=== PATIENT | female | born 1965 | race Caucasian/White ===

== ENCOUNTER 2024-06-27 14:56 | Emergency (ER) | payer BC, SELFPAY ==
[2024-06-27 14:59] VITALS: BP 148/90; PULSE 100; RESP 18; TEMP 37; O2SAT 97; BMI 43.0
[2024-06-27 15:21] LABS: Appearance Urine Clear (Clear); Bilirubin Urine Negative (Negative); Blood Urine Negative (Negative); Color Urine Yellow (Yellow); Glucose Urine Negative (Negative); Ketones Urine Negative (Negative); Leukocyte Esterase Urine Negative (Negative); Nitrite Urine Negative (Negative); Protein Urine Negative (Negative); Specific Gravity Urine 1.015 (1.000-1.030); Urobilinogen Urine 0.2 (0.2-1.0); pH Urine 7.5 (5.0-8.5)
--- NOTE | 2024-06-27 15:23 | ED_ITS ---
HPI - General Adult General Date Seen: 06/27/24 Chief complaint: Abdominal Pain Stated complaint: Diverticulitis Time Seen by Provider: 06/27/24 15:20 History of Present Illness HPI narrative: Pleasant 59-year-old female with a past medical history of asthma, hypertension, and history of diverticulitis (diagnosed after an ER visit at [facility] about 2 years ago. Treated with a 10 day course of antibiotic). She presents to the ER today for evaluation abdominal pain. She actually had an upper respiratory infection and ear infection last week and was put on a 5 day course of amoxicillin and a 5 day course of prednisone from Wednesday through Wednesday. Her respiratory symptoms are dramatically improved and she is feeling much better on that front. Beginning about 2 days ago, on Wednesday she started developed some intermittent waves of abdominal pain affecting both of her lower quadrants. Pain has been present off and on since then and getting gradually worse. No clear exacerbating or alleviating factors. No fever chills. She has had some mild nausea with pain today but no vomiting. She has been feeling bloated but has been passing normal bowel movements. No diarrhea. No black or bloody stools. She has been urinating frequently but not having any dysuria, or urgency. Today the pain is now localizing more more to her left side and the left upper quadrant. She has had previous hysterectomy. Related Data Home Medications ?Medication ?Instructions ?Recorded ?Confirmed albuterol sulfate 90 mcg/actuation g inhalation 02/27/22 06/20/24 aerosol inhaler losartan 25 mg tablet 25 mg PO 02/27/22 06/20/24 omeprazole 20 mg capsule,delayed 20 mg PO 02/27/22 06/20/24 release COVID-19 antigen test (BinaxNOW #1 ea 10/13/22 10/13/22 COVID-19 Ag Self Test kit) fluticasone 250 mcg-salmeterol 50 ea inhalation 10/13/22 06/20/24 mcg/dose blistr powdr for inhalation (Advair Diskus) Previous Rx's ?Medication ?Instructions ?Recorded amoxicillin 875 mg-potassium 1 tab PO Q12H #14 tabs 06/27/24 clavulanate 125 mg tablet hydrocodone 5 mg-acetaminophen 325 1 tab PO Q4H PRN pain #10 tabs 06/27/24 mg tablet Allergies Allergy/AdvReac Type Severity Reaction Status Date / Time No Known Drug Allergies Allergy Verified 06/27/24 16:29 [facility] Medical History Asthma ?J45.909 - Unspecified asthma, uncomplicated (ICD-10) Social History Smoking Status: Former smoker How often do you have a drink containing alcohol: 2-3 times a week AUDIT-C Alcohol total score: 3 Non-prescribed substance use: denies use Exam Narrative: Exam Narrative: Constitutional: Appears well-developed and well-nourished. Alert. Conversant. Non toxic. HENT: Head: Atraumatic. Nose: Nose normal. Mouth/Throat: Oral mucosa is clear and moist. no trismus. Eyes: Conjunctivae normal. EOM normal. Pupils equal, round, and reactive to light. No scleral icterus. Neck: Normal range of motion. Neck supple. No tracheal deviation present. Cardiovascular: Normal rate, regular rhythm. No gallop. No friction rub. No murmur heard. Symmetric radial artery pulses Pulmonary/Chest: Effort normal. No stridor. No respiratory distress. No wheezes. No rales. No rhonchi . No tenderness. Abdominal: Soft. Bowel sounds normal. No distension. No mass. Left upper quad> left lower quad> suprapubic and right lower quad tenderness. No rebound. No guarding. No CVA tenderness. Musculoskeletal: RUE: Normal range of motion. No tenderness. No deformity LUE: Normal range of motion. No tenderness. No deformity RLE: Normal range of motion. No edema. No tenderness. No deformity LLE: Normal range of motion. No edema. No tenderness. No deformity Neurological: Alert and oriented to person, place, and time. Normal strength. CN II-VII intact. No sensory deficit. GCS eye subscore is 4. GCS verbal subscore is 5. GCS motor subscore is 6. Normal coordination Skin: Skin is warm and dry. No rash noted. No pallor. Normal capillary refill. Psychiatric: Normal mood. Normal affect. Const: Vital Signs, click to edit/add: Vital Signs - 24 hr 06/27/24 14:59 06/27/24 16:42 Temperature 98.6 F 97.3 F L Pulse Rate [Right Pulse Oximeter] 100 89 Respiratory Rate 18 18 Blood Pressure [Ri ght Upper Arm] 148/90 H 165/79 H Pulse Oximetry 97 97 Oxygen Delivery Me thod Room Air Room Air Course Vital Signs Vital signs: Initial Vital Signs Temperature 98.6 F 06/27/24 14:59 Temperature Source Temporal Artery Scan 06/27/24 14:59 Pulse Rate 100 06/27/24 14:59 Respiratory Rate 18 06/27/24 14:59 Blood Pressure 148/90 H 06/27/24 14:59 Blood Pressure Mean 109 H 06/27/24 14:59 Blood Pressure Position Sitting 06/27/24 14:59 Pulse Oximetry 97 06/27/24 14:59 Oxygen Delivery Method Room Air 06/27/24 14:59 Vital Signs Temperature 98.6 F 06/27/24 14:59 Pulse Rate 100 06/27/24 14:59 Respiratory Rate 18 06/27/24 14:59 Blood Pressure 148/90 H 06/27/24 14:59 Pulse Oximetry 97 06/27/24 14:59 Oxygen Delivery Method Room Air 06/27/24 14:59 Temperature 97.3 F L 06/27/24 16:42 Pulse Rate 89 06/27/24 16:42 Respiratory Rate 18 06/27/24 16:42 Blood Pressure 165/79 H 06/27/24 16:42 Pulse Oximetry 97 06/27/24 16:42 Oxygen Delivery Method Room Air 06/27/24 16:42 Medications Administered Medications: Discontinued Medications Generic Name Dose Route Start Last Admin Trade Name Freq PRN Reason Stop Dose Admin Ketorolac Tromethamine 15 mg 06/27/24 16:52 06/27/24 17:07 Ketorolac 15 Mg/Ml Inj IVP 06/27/24 16:53 15 mg ONCE ONE Administration Medical Decision Making MDM Narrative Medical decision making narrative: Presented to the Emergency Department with left-sided> lower and right side abdominal pain. The differential diagnosis of abdominal pain includes: Appendicitis, Bowel Obstruction, Ulcer, Ischemia, Cholecystitis, Diverticulitis, Pancreatitis, UTI, kidney stone, Enteritis/Colitis, amongst many other etiologies.Laboratory testing does not reveal a cause for the patient's pain. She has a white count of 12 but reports that that is her typical baseline. CT imaging shows evidence for acute uncomplicated diverticulitis. No life threatening cause or need for emergent surgery or hospital admission is detected today. To treat diverticulitis she will start with her low residue diet and clear liquids. She will treat the pain with vugj-wio-dfaecap medications. Prescription for Littleton provided. Opiate precautions reviewed. She is only can use the Littleton for pain uncontrolled by Tylenol or ibuprofen In terms of antibiotic therapy will put her on Augmentin but she wants to hold off for 24-36 hours to see if then I diverticulitis will get better with conservative management. I think that is reasonable based on recent studies. The patient was advised that if symptoms do not completely resolve within another 3-4 dayss re-evaluation with primary care or return to the ED is indicated. The patient also understands that if they worsen, they should return to the ER right away. I discussed the uncertainty about the diagnosis and answered the patient's questions. Abdominal pain return precautions discussed. Need for follow-up repeat CT scan after resolution of symptoms review to the patient. She has an appointment set up with her PCP on 07/10. Lab Data Labs: Lab Results 06/27/24 06/27/24 06/27/24 Range/Units 15:15 15:20 15:53 WBC 12.49 H (4.50-11.00) K/uL RBC 4.06 (4.00-5.20) m/uL Hgb 12.3 (12.0-16.0) gm/dL Hct 37.9 (33.0-51.0) % MCV 93 (80-100) fL MCH 30 (26-34) pg MCHC 33 (32-36) gm/dL RDW Coeff of Yael 13.5 (11.5-15.5) % Plt Count 243 (140-440) K/uL Neut % (Auto) 67.8 (42.0-72.0) % Lymph % (Auto) 23.1 (20-44) % Howard % (Auto) 5.2 (0.0-11.0) % Eos % (Auto) 2.0 (0.0-7.0) % Baso % (Auto) 0.2 (0.0-3.0) % Neut # (Auto) 8.50 H (1.7-7.0) K/uL Lymph # (Auto) 2.90 (0.90-2.90) K/uL Howard # (Auto) 0.60 (0.00-0.90) K/UL Eos # (Auto) 0.20 (0.00-0.50) K/uL Baso # (Auto) 0.00 (0.00-0.30) K/uL Abs Immat Gran (auto) 0.20 (0.00-0.30) K/uL Imm/Tot Granulo (auto) 1.7 % Sodium 134 L (135-149) mmol/L Potassium 4.0 (3.6-5.1) mmol/L Chloride 101 (96-114) mmol/L Carbon Dioxide 26 (20-32) mmol/L Anion Gap 7 (7-15) mEq/L BUN 17 (7-30) mg/dL Creatinine 0.9 (0.5-1.5) mg/dL Estimated Creat Clear 42.44 Estimated GFR 73 ml/min Glucose 119 H (60-115) mg/dL Calcium 9.4 (8.4-10.6) mg/dL Total Bilirubin 0.3 (0.1-1.5) mg/dL AST 21 (12-35) U/L ALT 24 (4-35) U/L Alkaline Phosphatase 91 (40-150) U/L Total Protein 6.6 (6.0-8.3) g/dL Albumin 4.1 (3.3-5.0) g/dL Lipase 133 (23-300) U/L Urine Color Yellow (Yellow) Urine Appearance Clear (Clear) Urine pH 7.5 (5.0-8.5) Ur Specific [place] 1.015 (1.000-1.030) Urine Protein Negative (Negative) Urine Glucose (UA) Negative (Negative) Urine Ketones Negative (Negative) Urine Blood Negative (Negative) Urine Nitrite Negative (Negative) Urine Bilirubin Negative (Negative) Urine Urobilinogen 0.2 (0.2-1.0) Ur Leukocyte Esterase Negative (Negative) Urine RBC 0-2 (0-2) Urine WBC 0-2 (0-5) Ur Squamous Epith Cells None (None-Few) Urine Bacteria None (None) POC Creatinine 1.0 (0.6-1.3) mg/dl Imaging Data CT scan - abdomen: Attestation: I have reviewed the pertinent imaging results. Radiologist's impression: IMPRESSION: Findings compatible with acute uncomplicated sigmoid diverticulitis. No drainable abscess identified. Recommend repeat CT upon completion of treatment or resolution of symptoms, to exclude underlying neoplasm. Alternatively, follow-up with direct visualization with colonoscopy may be considered if not recently performed. Discharge Plan Discharge Clinical Impression: Diverticulitis Patient Disposition: Home, Self-Care Condition: Stable Instructions: Diverticulitis (DC) Additional Instructions: As we discussed, please come back to the ER right away if you have worsening symptoms especially high fever, severe pain, uncontrolled nausea or vomiting, or inability to pass bowel movements. Trigger diverticulitis as you know how. Start the antibiotic if you are not substantially improved within 36 hours. To treat the pain use Tylenol or ibuprofen 1st. For pain uncontrolled by those jcch-iqc-xifzwek medications, use the prescription pain killer, Littleton. Be careful because Littleton causes dizziness, drowsiness, constipation, and can be addictive. Please follow-up with your regular doctor for recheck by July 10 and have your regular doctor arrange a follow-up CT scan to make sure all of the inflammation of your colon is completely resolved (that is, make sure there is no underlying colon cancer) Prescriptions: New amoxicillin-pot clavulanate 875-125 mg tablet 1 tab PO Q12H Qty: 14 0RF hydrocodone-acetaminophen 5-325 mg tablet 1 tab PO Q4H PRN (Reason: pain) Qty: 10 0RF No Action losartan 25 mg tablet 25 mg PO omeprazole 20 mg capsule,delayed release(DR/EC) 20 mg PO albuterol sulfate 90 mcg/actuation HFA aerosol inhaler inhalation (DME) BinaxNOW COVID-19 Ag Self Test Kit See Rx Instructions .ROUTE .MEDSUPPLY Qty: 1 Rx Instructions: As directed fluticasone propion-salmeterol [Advair Diskus] 250-50 mcg/dose blister with device inhalation Patient Comments: INHALE 1 PUFF BY MOUTH TWICE DAILY Follow Up/Referrals: Provider,Not a Local [Non-Staff] - Stand Alone Forms: [facility] [employer] Info Instructions
[2024-06-27 15:30] LABS: RBC Urine 0-2 (0-2); WBC Urine 0-2 (0-5)
--- NOTE | 2024-06-27 15:41 | CRLHL7_ITS ---
For Patients: As a result of the Century Cures Act, medical imaging exams and procedure reports are released immediately into your electronic medical record. You may view this report before your referring provider. If you have questions, please contact your health care provider. INDICATION: Abdominal pain. TECHNIQUE: Multiplanar CT examination of the abdomen and pelvis was performed after the administration of 108 mL Isovue 370 intravenous contrast. COMPARISON: None. FINDINGS: Lower chest: No focal consolidation. Normal heart size. No pleural effusions or pneumothorax. Liver: Unremarkable. Gallbladder: Unremarkable. Biliary: Unremarkable. Pancreas: Within normal limits. Spleen: Unremarkable. Adrenal glands: Unremarkable. Renal/ureters/bladder: Normal in size and symmetrically enhancing. No obstructive uropathy. No hydronephrosis or obstructive urinary calculi. No suspicious renal masses. The ureters appear unremarkable. The bladder is within normal limits. Pelvis: Hysterectomy. No adnexal masses. Gastrointestinal: Mild wall thickening and pericolonic fat stranding involving the sigmoid colon, where there are numerous sigmoid colonic diverticula. No evidence of extraluminal air. No bowel obstruction. Normal appendix. Mild colonic stool burden. Vasculature: No aortic aneurysm. The portal vein remains patent. Mild atherosclerotic calcifications. Lymph nodes: No pathologic lymphadenopathy by size criteria. Peritoneum: No free fluid or pneumoperitoneum. No drainable fluid collections. No peridiverticular abscess. Abdominal wall/soft tissues: Unremarkable. Bones: No acute osseous abnormalities. Mild multilevel degenerative changes of the thoracolumbar spine. IMPRESSION: Findings compatible with acute uncomplicated sigmoid diverticulitis. No drainable abscess identified. Recommend repeat CT upon completion of treatment or resolution of symptoms, to exclude underlying neoplasm. Alternatively, follow-up with direct visualization with colonoscopy may be considered if not recently performed. Please note that all CT scans at this facility use dose modulation, iterative reconstruction, and/or weight-based dosing when appropriate to reduce radiation dose to as low as reasonably achievable. Dictated by Noel Chahal MD @ 06/27/2024 4:47:08 PM (Electronically Signed)
[2024-06-27 16:11] LABS: Basophils Percent Auto 0.2 % (0.0-3.0); Hematocrit 37.9 % (33.0-51.0); Hemoglobin* 12.3 gm/dL (12.0-16.0); Immature Granulocytes Pct Auto 1.7 %; Lymphocytes Percent Auto 23.1 % (20-44); Mean Corpuscular HGB Conc 33 gm/dL (32-36); Mean Corpuscular Hemoglobin 30 pg (26-34); Mean Corpuscular Volume 93 fL (80-100); Monocytes Percent Auto 5.2 % (0.0-11.0); Neutrophils Percent Auto 67.8 % (42.0-72.0); Platelet Count* 243 K/uL (140-440); RDW Coefficient of Variation % 13.5 % (11.5-15.5); Red Blood Count 4.06 m/uL (4.00-5.20); White Blood Count* 12.49 K/uL (4.50-11.00)
--- OUTSIDE RECORDS SUMMARY | 2024-06-27 16:21 | XMS_ITS | Clinical Summary ---
Author Organization [facility] Address [place], [place] [address] Care Team Providers Care Accounts Manager Name Role Phone Unavailable Primary Care Provider Unavailabl e Allergies Active Allergy Reactions Criticality Noted Date Comments Erythromycin *Unknown 12/28/2020 Nausea in childhood, taken as an adult an has been fine Medications Medication Sig Dispensed Refills Start Date End Date Status albuterol HFA (PRO-AIR; VENTOLIN; PROVENTIL) 90 mcg/actuation inhaler Inhale by mouth. Active diazePAM (VALIUM) 5 mg tablet TK 1 T PO ONCE DAILY TO BID PRN 04/15/2020 Active albuterol (PROVENTIL) 0.083 % neb solution albuterol sulfate 2.5 mg/3 mL (0.083 %) solution for nebulization Active omeprazole (PRILOSEC) 20 mg Delayed-Release capsuleIndications: Mild intermittent asthma, unspecified whether complicated,Chronic GERD Take 1 Capsule (20 mg) by mouth once daily before a meal. 90 Capsule 3 02/19/2021 Active albuterol HFA (PRO-AIR; VENTOLIN; PROVENTIL) 90 mcg/actuation inhalerIndications: Mild intermittent asthma, uncomplicated Inhale 1-2 Puffs by mouth every 4 hours if needed. 18 g 5 05/30/2021 Active Advair Diskus 250-50 mcg/dose diskus inhalerIndications: Mild intermittent asthma, uncomplicated INHALE 1 PUFF BY MOUTH TWICE DAILY 120 Each 05/26/2022 Active Active Problems Problem Noted Date Diagnosed Date Mild intermittent asthma, uncomplicated 12/29/19 21 Body mass index (BMI)40.0-44.9, adult 09/17/2020 Benign paroxysmal vertigo, bilateral 03/23/2017 Other hyperlipidemia 07/18/2016 ANTHONY (generalized anxiety disorder) 07/14/2016 GERD without esophagitis 04/10/2013 Immunizations Name Administration Dates Next Due COVID-19 vaccine (Bricsnet 30mcg/0.3mL) P F, MDV 11/14/2020,10/27/2020 Td (Age >=7 Years) 06/01/2005 Family History Medical History Relation Name Comments COPD Mother Relation Name Status Comments Father Mother Social History Tobacco Use Types Packs/Day Years Used Date Smoking Tobacco: Former Cigarettes 0 02/19/1981 - 02/19/2011 Smokeless Tobacco: Never Alcohol Use Standard Drinks/Week Comments Yes 6 (1 standard drink = 0.6 oz pur e alcohol) PHQ-2 Answer Date Recorded PHQ-2 TOTAL SCORE 0 05/30/2021 Social Connections Answer Date Recorded Frequency of Communication with Friends and Fami ly Not on file 08/30/2021 Financial Resource Strain Answer Date R ecorded Difficulty of Paying Living Expenses Not on file 08/30/2021 Difficulty of Paying Living Expenses Not on file 08/30/2021 Sex and Gender Information Value Date Recorded Sex Assigned at Not on file Gender Identity Not on file Sexual Orientation Not on file Obstetrics History Para Term AB IAB SAB Ectopic Multiple Livin g Live Births 3 2 2 Date Outcome GA Total Labor Labor/2nd/3rd Weight Sex Type Anes PTL Karuna A1 A5 Name Clin SAB SAB Last Filed Vital Signs Vital Sign Reading Time Taken Comments Blood Pressure 140/82 05/30/2021 2:57 PM CDT Pulse 76 05/30/2021 2:56 PM CDT Temperature - - Respiratory Rate - - Oxygen Saturation 98% 02/19/2021 3:42 PM CDT Inhaled Oxygen Concentration - - Weight 95.3 kg (210 lb) 05/30/2021 2:56 PM CDT Height 147.8 cm (4' 10.17) 02/19/2021 3:42 PM C DT Body Mass Index 43.64 02/19/2021 3:42 PM CDT Plan of Treatment Health Maintenance Due Date Last Done Comments Tdap 1974 HIV for age 15-65 1978 Hepatitis C screening for age 18-79 1981 Pap test for age 21-65 02/06/1984 Lipids for age 45-75 02/06/2008 Mammogram for age 45-75 02/06/2008 Zoster (shingles) series for age 50+ (1 of 2) 2013 Tetanus booster 06/01/2015 06/01/2005 BMI (ht and wt on same day) for age 18+ 02/19/2022 02/19/2021 Depression screening for age 12+ 05/30/2022 05/30/2021, 02/19/2021, 02/18/2021, Additional history exists COVID-19 vaccine series ( season) 2024 06/23/2021, 11/14/2020, 10/27/2020 Influenza for age 50-64 04/30/2024 Colonoscopy through age 75 02/18/2031 02/18/2021 Pneumococcal series for age 6-64 Aged Out No longer eligible based on patient's age to complete this topic Goals Goal Patient Goal Type Associated Problems Recent Progress Patient-Stated? Author BLOOD PRESSURE - Maintains BP less than 130/80 Blood Pressure No Nichol Carrasco LPN Procedures Procedure Name Priority Date/Time Associated Diagnosis Comments SCAN-COLONOSCOPY 02/18/2021 2:00 PM CDT from Last 3 Months or Most Recently Relevant to Health Maintenance Results * SCAN-COLONOSCOPY (02/18/2021 2:00 PM CDT) Narrative Procedure Note Evette Corrales MD - 02/18/2021 1:14 PM CDT [facility] [address] [place] [address], [address], [place] [address] Patient Name: Rayne Chaidez Gender: Female Exam Date: 02/18/2021 Visit Number: [id number] Age: 56 Years Date of : 1965 Attending MD: Evette Corrales MD Medical Record#: [id number] Procedure: Colonoscopy Indications: Previous adenomatous polyp(s) Referring MD: Referral Self Primary MD: No Primary Medications: Admitting Medications: 0.9% Normal Saline at TKO Intra Procedure Medications: Patient received monitored anesthesia care. Complications: No immediate complications Procedure: An examination of the heart and lungs was performed and found to be withinacceptable limits. . The patient was therefore deemed a reasonablecandidate for endoscopy and sedation. The risks and benefits of the procedure were explained to the patient.After obtaining informed consent, the patient received monitoredanesthesia care and I passed the scope without difficulty via the rectum to the cecum. The scope wasretroflexed during the examination The quality of the prep was good(Miralax/Gatorade/2 tablets Bisacodyl/Magnesium Citrate). This was a complete examination throughout the entire colon. Findings: Polyp location: transverse colon. Quantity: 3. Size: 3-4 mm. Polypshape: sessile. Maneuver: polypectomy was performed with a cold snare. Removal: complete. Retrieval: partial. Bleeding: none. Polyp location: descending colon. Quantity: 3. Size: 3-4 mm. Polypshape: sessile. Maneuver: polypectomy was performed with a cold snare . Removal: complete. Retrieval: complete. Bleeding: none. Polyp location: sigmoid. Quantity: 3. Size: 3-4 mm. Polyp shape:sessile. Maneuver: polypectomy was performed with a cold snare . Removal: complete. Retrieval: complete. Bleeding: none. Diverticulosis. Location: - descending colon - sigmoid. Size:medium. Quantity: several. No inflammation present. Remainder of the exam is normal. Impression: Colorectal polyps Personal history of colonic polyps Diverticulosis of colon without diverticulitis Preliminary Plan: Repeat colonoscopy in 5 years Pathology Results: A: COLON, TRANSVERSE, POLYPS: 1. Tubular adenomas (2) 2. Negative for high grade dysplasia 3. Per the colonoscopy report: a. Polyp sizes: 3 mm - 4 mm b. Resection: Complete (for 3 polyps) c. Retrieval: Partial (2 polyps recovered) B: COLON, DESCENDING, POLYPS: 1. Tubular adenomas (2) and hyperplastic polyp (1) 2. Negative for high grade dysplasia 3. Per the colonoscopy report: a. Polyp sizes: 3 mm - 4 mm b. Resection: Complete c. Retrieval: Complete C: COLON, SIGMOID, POLYPS: 1. Hyperplastic polyps (3) MICROSCOPIC A: Performed B: Performed C: Performed Electronically signed by: Jordan Michaels MD Interpreted at [facility], [address] [place], [place] [id number] Orders Instruction(s)/Education: Instruction/Education Timeframe Assessment Colon Cancer Prevention K63.5 Colon Polyps K63.5 Diverticulosis/Diverticulitis K63.5 High Fiber Diet K63.5 Final Plan: Repeat colonoscopy in 5 years. We will attempt to contact you at appropriate intervals via U.S. mail. Wemay not be able to find you or contact you at that time, therefore youshould know that the responsibility for following our recommendation restswith you. If you don't hear from us at the time your procedure is due,please contact our office to schedule an appointment. If your contactinformation should change, please contact our office so that we can updateyour record. _Electronically signed by: Evette Corrales MD 02/18/2021 cc: No Primary cc: Referral Self Evette Corrales MD OTHER from Last 3 Months or Most Recently Relevant to Health Maintenance
--- OUTSIDE RECORDS SUMMARY | 2024-06-27 16:21 | XMS_ITS | Encounter Summary ---
Author Organization [facility] Address [address] [place] [address] Care Team Providers Care Liquid Flavor Compounder Name Role Phone Chino Biswas MD Unavailable [phone] Crystal Sherman MD Primary Care Provider Tameka Abernathy PA-C Unavailable [phone] Encounter Details Date Type Department Care Team (Late st Contact Info) Description 12/20/2022 Orders Only [facility] [address] [place] [address] Kate Mason [place] [address] [address] [place] [address] Pre-op testing (Primary Dx) Social History Tobacco Use Types Packs/Day Years Used Date Smoking Tobacco: Former Cigarettes Q uit: 2010 Smokeless Tobacco: Never Comments:quit 3 years ago Alcohol Use Standard Drinks/Week Comments Yes 0 (1 standard drink = 0.6 oz pure alcohol) rarely, maybe four week on weekends Comments No Sex and Gender Information Value Date Recorded Sex Assigned at Not on file 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 No / Unsure 12/21/2022 10:47 AM CDT documented as of this encounter Plan of Treatment Not on file documented as of this encounter Results * ABO and Rh (12/20/2022 10:54 AM CDT) ABO/RH(D) B NEG 12/20/2022 10:44 AM CDT [facility] BLOOD BANK SPECIMEN EXPIRATION DATE [id number] 12/20/2022 10:44 AM CDT [facility] BLOOD BANK Blood STRUCTURE OF LEFT UPPER LIMB / Unknown Venipuncture / Unknown 12/20/2022 10:54 AM CDT 12/20/2022 10:55 AM CDT [facility] Mona Mason MD LAB - BLOOD BANK TEST OR JULES Final Result BLOOD BANK [address] [place] [address], [facility] documented in this encounter Visit Diagnoses Diagnosis Pre-op testing- Primary Preoperative examination, unspecified documented in this encounter Care Teams Liquid Flavor Compounder Relationship Specialty [place] [address] [place] [address] PCP - General Family Medicine 02/27/22 Chino Biswas MD Family Practice 06/16/11 Tameka Abernathy PA-C [address] [place] [address] Physician Railroad Repairer Urology 04/23/22 documented as of this encounter
--- OUTSIDE RECORDS SUMMARY | 2024-06-27 16:21 | XMS_ITS | Encounter Summary ---
Author Organization [facility] Address [address] [place] [address] Care Team Providers Care Utilization Supervisor Name Role Phone Chino Biswas MD Unavailable [phone] Crystal Sherman MD Primary Care Provider [phone] Tameka Abernathy PA-C Unavailable [phone] Reason for Visit * Reason Onset Date Comments Appointment 04/23/2022 Bladder Issues Encounter Details Date Type Department Care Team (Late st Contact Info) Description 04/23/2022 [facility] [address] [address] None Appointment (Bladder Issues) Social History Tobacco Use Types Packs/Day Years Used Date Smoking Tobacco: Former Cigarettes Smokeless Tobacco: Never Comments:quit 3 years ago Alcohol Use Standard Drinks/Week Comments Yes 0 (1 standard drink = 0.6 oz pure alcohol) rarely, maybe four week on weekends Comments No Sex and Gender Information Value Date Recorded Sex Assigned at Not on file 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 Pt is being advised to be seen sooner that her current appt on 06/24. Please reach out to pt - [phone] - to further discuss. Thank you Action Taken: Other: URO Travel Screening: Not Applicable documented in this encounter Plan of Treatment Not on file documented as of this encounter Visit Diagnoses Not on filedocumented in this encounter Care Teams Utilization Supervisor Relationship Specialty [place] [address] [place] [address] PCP - General Family Medicine 02/27/22 Chino Biswas MD Family Practice 06/16/11 Tameka Abernathy PA-C [address] [address] Physician Preparation Plant Repairer Urology 04/23/22 documented as of this encounter
--- OUTSIDE RECORDS SUMMARY | 2024-06-27 16:21 | XMS_ITS | Clinical Summary ---
Author Organization [facility] Address [address], [place] [address] Care Team Providers Care Director Hematology Name Role Phone Dewayne Grimes MD Primary Care Provider [phone] Source Comments You are receiving this document as you are listed as the primary care provider,follow-up provider, or the patient has been referred to you for consultation.This is in compliance with the Medicare andOhio[facility] Doctors Hospitalca[facility] EHR Incentive Program,which states Providers who transition their patient to another setting of careor provider of care or refers their patient to another provider of care shouldprovide summary care record for each transition of care or referral. [employer] Allergies No known active allergies Medications Medication Sig Dispensed Refills Start Date End Date Status losartan (COZAAR) 25 MG tabletIndications:Es sential hypertension (HRC) Take 1 Tablet (25 mg) by mouth daily. 90 Tablet 3 11/29/2023 11/28/2024 Active omeprazole (PRILOSEC) 20 MG capsule Take 1 Capsule (20 mg) by mouth daily. Take 1 hour before a meal. 90 Capsule 3 11/29/2023 Active ergocalciferol (DRISDOL) 1.25 MG (06321 UT) capsule Take 1 Capsule (50,000 Units) by mouth once every week. 12 Capsule 12/03/2023 Active fluticasone-salmeter ol (WIXELA INHUB) 250-50 MCG/ACT diskus inhalerIndications:M ild persistent asthma without complication (HRC) inhale 1 puff by mouth twice daily 180 Each 3 01/28/2024 Active VENTOLIN HFA 108 (90 Base) MCG/ACT inhalerIndications:M ild persistent asthma without complication (HRC) INHALE 1 TO 2 PUFFS BY MOUTH EVERY 4 HOURS NEEDED FOR WHEEZING 54 g 2 05/10/2024 Active Active Problems Problem Noted Date Diagnosed Date Essential hypertension 10/26/2022 Routine health maintenance 05/13/2022 Mild persistent asthma without complication 04/30 Polyp of corpus uteri Encounters Date Type Department Care Team Description 05/09/2024 Refill [facility] [address] [place] [address] Crystal Sherman MD Refill (VENTOLIN HFA 108 (90 Base) MCG/ACT inhaler [Pharmacy Med Name: VENTOLIN HFA INH W/DOS CTR 200PUFFS]) from Last 3 Months Immunizations Name Administration Dates Next Due Pfizer Monovalent 12+ Purple Top 06/23/2021,10/28,10/27/2020 Td (7+ yrs) 06/01/2005 Family History Medical History Relation Name Comments Heart Surgery Paternal Grandfather Relation Name Status Comments Mother Paternal Grandfather Alive Paternal Grandmother Other Social History Tobacco Use Types Packs/Day Years Used Date Smoking Tobacco: Former Cigarettes 1 30 0 08/30/1977 - 08/30/2007 Smokeless Tobacco: Never Tobacco Cessation:Counseling Given: Not Answered Alcohol Use Standard Drinks/Week Comments Yes 6 (1 standard drink = 0.6 oz pur e alcohol) PHQ-2 Answer Date Recorded PHQ-2 Score 0 11/29/2023 Financial Resource Strain Answer Date R ecorded Is it hard for you to pay fo r the very basics like food, housing, medical care or heating? No 11/29/2023 Food Insecurity Answer Date Recorded Does your food run out before you have the money to buy more? No 11/29/2023 Transportation Needs Answer Date Record ed Does a lack of transportatio n keep you from your medical appointments or from getting your medications? No 024 Sex and Gender Information Value Date Recorded Sex Assigned at Not on file Gender Identity Not on file Sexual Orientation Not on file Last Filed Vital Signs Vital Sign Reading Time Taken Comments Blood Pressure 134/76 11/29/2023 12:49 PM CDT Pulse 75 11/29/2023 10:07 AM CDT Temperature - - Respiratory Rate 20 11/27/2022 7:35 AM CDT Oxygen Saturation - - Inhaled Oxygen Concentration - - Weight 92.3 kg (203 lb 6.4 oz) 11/29/2023 10:07 AM CDT Height 148.6 cm (4' 10.5) 11/29/2023 10:07 AM C DT Body Mass Index 41.79 11/29/2023 10:07 AM CDT Plan of Treatment Upcoming Encounters Date Type Department Care Team (Late st Contact Info) Description 07/05/2024 3:30 PM SOFTWARE APPLICATIONS DEVELOPER Appointment [facility] [address] [place] [address] [place] [address] [place], [place] [id number] Health Maintenance Due Date Last Done Comments Colon Cancer Screening Plan Due 1963 Hep C Screening (Preventive Services) 1963 Pneumococcal (1 - PCV) 1969 HIV Screening (Preventive Services) 1979 DTaP/Tdap/Td (1 - Tdap) 06/02/2005 06/01/2005 Zoster/Shingles (1 of 2) 2013 Mammogram 08/06/2022 08/06/2021, 03/2021 (Completed), 04/30/2020, Additional history exists RSV (1 - Risk 60-74 years 1-dose series) 2023 COVID-19 Vaccine ( season) 2024 06/07/2023, 06/23/2021, 11/14/2020, Additional history exists Influenza (#1) 2024 06/07/2023 Adult Preventive Visit 11/28/2024 11/29/2023, 2020 Diabetes Screening- (based on age and BMI) 11/30/2026 12/01/2023, 10/26/2022, 08/21/2021 Cholesterol 11/30/2028 12/01/2023, 03/08/2022, 08/21/2021 HepA Aged Out No longer eligi ble based on patient's age to complete this topic HepB Aged Out No longer eligi ble based on patient's age to complete this topic Hib Aged Out No longer eligi ble based on patient's age to complete this topic IPV (Polio) Aged Out No longer eligi ble based on patient's age to complete this topic Infant RSV Aged Out No longer eligi ble based on patient's age to complete this topic MCV4 Aged Out No longer eligi ble based on patient's age to complete this topic Procedures Procedure Name Priority Date/Time Associated Diagnosis Comments HGB A1C Routine 12/01/2023 7:38 AM CDT Essential hypertension (HRC) LIPID PANEL & DIRECT LDL (IF NEEDED) Routine 12/01/2023 7:38 AM CDT Screening cholesterol level from Last 3 Months or Most Recently Relevant to Health Maintenance Results * (ABNORMAL) Lipid Panel & Direct LDL (if Needed) (12/01/2023 7:38 AM CDT) Cholesterol 258(H) 0 - 199 mg/dL 12/01/2023 12:07 PM CDT [facility] Triglyceride 175(H) <=149 mg/dL 12/01/2023 12:07 PM CDT [facility] HDL Cholesterol 58 >=40 mg/dL 12/01/2023 12:07 PM CDT [facility] LDL, Calculated 165(H) <130 mg/dL 12/01/2023 12:07 PM CDT [facility] Non HDL Chol, Calculated 200(H) <=159 mg/dL 12/01/2023 12:07 PM CDT [facility] Cholesterol/HDL Ratio 4.4 <=5.0 12/01/2023 12:07 PM T [facility] Hours Fasting 12.0 8 - 12 Hours 12/01/2023 12:07 PM CDT [facility] Blood Venipuncture / Unknown 12/01/2023 7:38 AM CDT 12/01/2023 7:38 AM CDT Crystal Sherman MD LAB_1 [facility] [address] [address] [address] [place] [address] * (ABNORMAL) Hgb A1C (12/01/2023 7:38 AM CDT) Hemoglobin A1C 5.8(H) <=5.6 % 12/01/2023 12:39 PM CDT [facility] Estimated Average Glucose (Calc) 120 < 117 mg/dL 12/01/2023 12:39 PM CDT [facility] Comment:Estimated average gl ucose (eAG) converts A1c into glucose units (mg/dL) and estimates average glucose over the past approximately 3 months. The eAG reference interval (<117 mg/dL) corresponds to an A1c of <5.7%. Blood Venipuncture / Unknown 12/01/2023 7:38 AM CDT 12/01/2023 7:38 AM CDT Narrative [facility] - 12/01/2023 12:39 PM CDT For patients not previously diagnosed with diabetes: 5.7-6.4%: Increased risk for diabetes 6.5% and greater: Diagnostic for diabetes For patients diagnosed with diabetes: <8.0%: Goal of therapy for ages 18-75 Clinicians may recommend a higher or lower goal for specific individuals. Crystal Sherman MD LAB_1 [facility] [address] [address], [facility] from Last 3 Months or Most Recently Relevant to Health Maintenance Care Teams Director Hematology Relationship Specialty Start Date End Date Dewayne Grimes MD [address] [place], [place] [address] PCP - General 12/02/10
--- OUTSIDE RECORDS SUMMARY | 2024-06-27 16:21 | XMS_ITS | Referral Summary ---
Author Organization [facility] Address [address] [place] [address] Care Team Providers Care Director Airport Name Role Phone Chino Biswas MD Unavailable [phone] Crystal Sherman MD Primary Care Provider Tameka bAernathy PA-C Unavailable Encounters Date Type Department Care Team Description 05/11/2024 Travel 05/11/2024 2:14 PM CDT - 05/11/2024 11:59 PM CDT Hospital Encounter [facility] [address], [address] [place] [phone] Kate Mason MD Visit for screening mammogram Discharge Disposition: Home or Self Care from Last 3 Months Allergies Active Allergy Reactions Criticality Noted Date Comments No Known Drug Allergy 09/16/2004 Medications fluticasone-salme terol (ADVAIR) 250-50 MCG/DOSE inhaler Inhale 1 puff into the lungs 2 times daily Active omeprazole (PRILOSEC) [address] capsule Take 20 mg by mouth daily Active losartan (COZAAR) 25 MG tablet Take 25 mg by mouth daily 3 Active albuterol (PROAIR HFA/PROVENTIL HFA/VENTOLIN HFA) 108 (90 Base) MCG/ACT inhaler Inhale 1-2 puffs into the lungs every 4 hours as needed 1 Active acetaminophen (TYLENOL) 325 MG tabletIndications :Status post hysteroscopy Take 2 tablets (650 mg) by mouth every 4 hours as needed for other (mild pain) 100 tablet 3 Active oxyCODONE (ROXICODONE) 5 MG tabletIndications :S/P laparoscopic hysterectomy Take 1-2 tablets (5-10 mg) by mouth every 4 hours as needed for moderate to severe pain 15 tablet 3 Active Active Problems Patient Care Coordination No te Formatting of this note migh t be different from the original. [email or web address] Problem Noted Date Diagnosed Date Mild persistent asthma without complication 04/30 MIXED HYPERLIPIDEMIA(aka HYPERLIPIDEMIA) 005 Overview (09/16/2004): LDL 155, HDL 45, TRIG 227 Resolved Problems Problem Noted Date Diagnosed Date Resolved Date Left knee pain 10/24/2015 12/02/2015 ACL (anterior cruciate ligament) tear 10/24/2015 12/02/2015 Social History Tobacco Use Types Packs/Day Years Used Date Smoking Tobacco: Former Cigarettes Q uit: 2009 Smokeless Tobacco: Never Tobacco Cessation:Counseling Given: Not Answered Comments:quit 3 years ago Alcohol Use Standard Drinks/Week Comments Yes 0 (1 standard drink = 0.6 oz pure alcohol) rarely, maybe four week on weekends Adolescent Education Answer Date Record ed Getting School Help Needed Not on file 06/13 Comments No Sex and Gender Information Value Date Recorded Sex Assigned at Not on file 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 Gender Identity Not on file Sexual Orientation Not on file Occupation Industry Job Start Date Job End Date homemaker Not on file Not on file Not on file Last Filed Vital Signs Vital Sign Reading Time Taken Comments Blood Pressure 139/79 12/21/2022 5:45 PM CDT Pulse 80 12/21/2022 5:45 PM CDT Temperature 36.1 ??C (97 ??F) 12/21/2022 5:21 PM CDT Respiratory Rate 16 12/21/2022 5:21 PM CDT Oxygen Saturation 96% 12/21/2022 5:45 PM CDT Inhaled Oxygen Concentration - - Weight 96.5 kg (212 lb 11.2 oz) 023 10:54 AM CDT Height 152.4 cm (5') 12/21/2022 10:54 AM CDT Body Mass Index 41.54 12/21/2022 10:54 AM CDT Plan of Treatment Not on file Procedures Procedure Name Priority Date/Time Associated Diagnosis Comments MA SCREENING BILATERAL W/ STEF Routine 05/11/2024 2:33 PM CDT Visit for screening mammogram COMPREHENSIVE METABOLIC PANEL STAT 02/27/2022 3:35 PM CDT from Last 3 Months or Most Recently Relevant to Health Maintenance Results * MA Screen Bilateral w/Stef (05/11/2024 2:33 PM CDT) Anatomical Region Laterality Modality Breast Bilateral Mammography Impressions 05/12/2024 8:17 AM CDT IMPRESSION: ACR BI-RADS Category 1: Negative BREAST CANCER SCREENING RECOMMENDATION: Routine yearly mammography beginning at age 40 or as discussed with your provider. The results and recommendations of this examination will be communicated to the patient. Sandoval Jimenez MD Narrative 05/12/2024 8:17 AM CDT BILATERAL FULL FIELD DIGITAL SCREENING MAMMOGRAM WITH TOMOSYNTHESIS Performed on: 05/11/24 Compared to: 08/06/2021, 04/30/2020, and 03/16/2019 Technique: ??This study was evaluated with the assistance of Computer-Aided Detection. ??Breast Tomosynthesis was used in interpretation. Findings: The breasts are almost entirely fatty. ??There is no radiographic evidence of malignancy. Kate Mason MD IMG MAMMOGRAPHY ORDERABL ES Final Result * (ABNORMAL) Comprehensive metabolic panel (02/27/2022 3:35 PM CDT) Sodium 136 133 - 144 mmol/L 02/27/2022 4:05 PM CDT [facility] Potassium 4.0 3.4 - 5.3 mmol/L 02/27/2022 4:05 PM CDT [facility] Chloride 104 94 - 109 mmol/L 02/27/2022 4:05 PM CDT [facility] Carbon Dioxide (CO2) 24 20 - 32 mmol/L 02/27/2022 4:05 PM CDT [facility] Anion Gap 8 3 - 14 mmol/L 02/27/2022 4:05 PM CDT [facility] Urea Nitrogen 9 7 - 30 mg/dL 02/27/2022 4:05 PM CDT [facility] Creatinine 0.78 0.52 - 1.04 mg/dL 02/27/2022 4:05 PM CDT [facility] Calcium 9.2 8.5 - 10.1 mg/dL 02/27/2022 4:05 PM CDT [facility] Glucose 117(H) 70 - 99 mg/dL 02/27/2022 4:05 PM CDT [facility] Alkaline Phosphatase 84 40 - 150 U/L 02/27/2022 4:05 PM CDT [facility] AST 13 0 - 45 U/L 02/27/2022 4:05 PM CDT [facility] ALT 40 0 - 50 U/L 02/27/2022 4:05 PM CDT [facility] Protein Total 7.4 6.8 - 8.8 g/dL 02/27/2022 4:05 PM CDT [facility] Albumin 3.6 3.4 - 5.0 g/dL 02/27/2022 4:05 PM CDT [facility] Bilirubin Total 0.9 0.2 - 1.3 mg/dL 02/27/2022 4:05 PM CDT [facility] GFR Estimate 87 >60 mL/min/1.7 3m2 02/27/2022 4:05 PM CDT [facility] Comment:Effective July 312020 eGFRcr in adults is calculated using the 2020 CKD-EPI creatinine equation which includes age and gender (Lisa et al., NEJM, DOI: 10.1056/RSHFbj1864336) Blood STRUCTURE OF LEFT UPPER LIMB / Unknown Venipuncture / Unknown 02/27/2022 3:35 PM CDT 02/27/2022 3:41 PM CDT us More Brower MD LAB - BLOOD ORDERABLES Final Result LABORATORY [facility] [address] Lab (1st floor, no room number) [place] [address], [facility] [phone] from Last 3 Months or Most Recently Relevant to Health Maintenance Insurance [place] Advance Directives For more information, please contact: [phone] * Full Code (Latest Code Status on File) Date Activated Date Inactivated Comments 11/02/2022 12:09 PM 11/02/2022 3:24 PM All basic and advanced life-sustaining interventions are performed as appropriate Question Answer Comments Code status determined by: Discussion with patie nt/ legal decision maker Care Teams Director Airport Relationship Specialty [place] [address] [place] [address] PCP - General Family Medicine 02/27/22 Chino Biswas MD Family Practice 06/16/11 Tameka Abernathy PA-C [address] [facility] [place] [address] Physician Career Technology Teacher Urology 04/23/22
--- OUTSIDE RECORDS SUMMARY | 2024-06-27 16:21 | XMS_ITS | Encounter Summary ---
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 Gender Identity Not on file Sexual Orientation Not on file Occupation Industry Job Start Date Job End Date homemaker Not on file Not on file Not on file documented as of this encounter Plan of Treatment Not on file documented as of this encounter Visit Diagnoses Not on filedocumented in this encounter Care Teams Lead Manufacturing Engineer Relationship Specialty [place] [address] [place] [address] PCP - General Family Medicine 02/27/22 Chino Biswas MD Family Practice 06/16/11 Tameka Abernathy PA-C [address] [place] [address] [place] [address] Physician Office Machine Technician Urology 04/23/22 documented as of this encounter
--- OUTSIDE RECORDS SUMMARY | 2024-06-27 16:21 | XMS_ITS | Encounter Summary ---
[facility] [address] [place] [address] Care Team Providers Care Electrical Cad Designer Name Role Phone Dewayne Grimes MD Primary Care Provider [phone] Reason for Visit * Reason Comments Refill VENTOLIN HFA 108 (90 Base) MCG/ACT inhaler [Pharmacy Med Name: VENTOLIN HFA INH W/DOS CTR 200PUFFS] Encounter Details Date Type Department Care Team (Late st Contact Info) Description 05/09/2024 Refill [facility] [address] [place], [place] [phone] [place] [address] [place] [address] Refill (VENTOLIN HFA 108 (90 Base) MCG/ACT inhaler [Pharmacy Med Name: VENTOLIN HFA INH W/DOS CTR 200PUFFS]) Social History Tobacco Use Types Packs/Day Years Used Date Smoking Tobacco: Former Cigarettes 1 30 0 08/30/1977 - 08/30/2007 Smokeless Tobacco: Never Alcohol Use Standard Drinks/Week [...] on file Sexual Orientation Not on file documented as of this encounter Nursing Notes * Savannah Markham, RN - 05/10/2024 2:50 PM CDT Refilled per standing order. * Brian Stevenswizadesean Xrwcomm - 05/09/2024 3:34 PM CDT VENTOLIN HFA 108 (90 Base) MCG/ACT inhaler [Pharmacy Med Name: VENTOLIN HFA INH W/DOS CTR 200PUFFS] Miscellaneous - 12 Month Visit 1 -> Refill x 9 months (until due for an office visit) -> Calculate the quantity and number of refills manually. Last qualifying visit: 11/29/2023 (with CRYSTAL SHERMAN) Next scheduled visit: None Last ordered by CRYSTAL SHERMAN S: 11/05/2023 (186 days ago) QTY: 54, Refills: 0, Sig: inhale 1 to 2 puffs by mouth every 4 hours as needed for wheezing (unchanged) [employer] Embedded Refills, Reference: [id number], 05/09/2024 3:34:41 PM CDT, Pool: HP Refill Centralized Services - Primary Care ([id number]) documented in this encounter Plan of Treatment Upcoming Encounters Date Type Department Care Team (Late st Contact Info) Description 07/05/2024 3:30 PM GARDE MANAGER Appointment [facility] [address] [place] [phone] [place] [address] [place], [place] [phone] documented as of this encounter Visit Diagnoses Diagnosis Mild persistent asthma without complication (HRC) Unspecified asthma documented in this encounter Care Teams Electrical Cad Designer Relationship Specialty Start Date End Date Dewayne Grimes MD [address] [place] [address] PCP - General 12/02/10 documented as of this encounter
--- OUTSIDE RECORDS SUMMARY | 2024-06-27 16:21 | XMS_ITS | Encounter Summary ---
Author Organization [facility] Address [address] [facility] [place] [address] Care Team Providers Care Pedodontist Name Role Phone Chino Biswas MD Unavailable [phone] Crystal Sherman MD Primary Care Provider [phone] Tameka Abernathy PA-C Unavailable [phone] Reason for Visit * Reason Onset Date Comments Erroneous encounter-disregard 04/23/2022 Encounter Details Date Type Department Care Team (Late st Contact Info) Description 04/23/2022 Telephone [facility] [address] Floor,[address] [employer] [facility] [address] [place] [address] None Erroneous encounter-disregard Social History Tobacco Use Types Packs/Day Years Used Date Smoking Tobacco: Former Cigarettes Smokeless Tobacco: Never Comments:quit 3 years ago Alcohol Use Standard Drinks/Week Comments Yes 0 (1 standard drink = 0.6 oz pure alcohol) rarely, maybe four week on weekends Comments No Sex and Gender Information Value Date Recorded Sex Assigned at Not on file 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 Gender Identity Not on file Sexual Orientation Not on file Occupation Industry Job Start Date Job End Date homemaker Not on file Not on file Not on file documented as of this encounter Plan of Treatment Not on file documented as of this encounter Visit Diagnoses Not on filedocumented in this encounter Care Teams Pedodontist Relationship Specialty Start [place] [address] [facility] [place] [address] PCP - General Family Medicine 02/27/22 Chino Biswas MD Family Practice 06/16/11 Tameka Abernathy PA-C [address] [address] Physician Dramatic Coach Urology 04/23/22 documented as of this encounter
--- OUTSIDE RECORDS SUMMARY | 2024-06-27 16:21 | XMS_ITS | Encounter Summary ---
Author Organization [facility] Address [address] [place] [address] Care Team Providers Care Pattern Storage Clerk Name Role Phone Chino Biswas MD Unavailable [phone] Crystal Sherman MD Primary Care Provider [phone] Tameka Abernathy PA-C Unavailable [phone] Reason for Referral * Diagnostic Imaging Mammo (Routine) - Pending Review Specialty Diagnoses / Procedures Referred By Javy gallardo Referred To Contact Radiology. Diagnoses Visit for screening mammogram Procedures MA Screen Bilateral w/Kate Beltran MD [address] [place] [phone] Phone: tel: fax: Referral ID Status Reason Start Date Expiration Date V isits Requested Visits Authorized [id number] Pending Review 05/10/2024 05/10/2025 1 1 Reason for Visit * Diagnostic Imaging Mammo (Routine) - Pending Review Specialty Diagnoses / Procedures Referred By Javy gallardo Referred To Contact Radiology. Diagnoses Visit for screening mammogram Procedures MA Screen Bilateral w/Kate Beltran MD [address] [place] [phone] Phone: tel: fax: Referral ID Status Reason Start Date Expiration Date V isits Requested Visits Authorized [id number] Pending Review 05/10/2024 05/10/2025 1 1 Encounter Details Date Type Department Care Team (Latest Contact Info) Description 05/11/2024 2:14 PM CDT - 05/11/2024 11:59 PM CDT Hospital Encounter [facility] [address] [facility], [address] [place] [address] Kate Mason MD [address] [address] [place] [address] Visit for screening mammogram Discharge Disposition: Home or Self Care Social History Tobacco Use Types Packs/Day Years Used Date Smoking Tobacco: Former Cigarettes Q uit: 2009 Smokeless Tobacco: Never Comments:quit 3 years ago Alcohol Use Standard Drinks/Week Comments Yes 0 (1 standard drink = 0.6 oz pure alcohol) rarely, maybe four week on weekends Adolescent Education Answer Date Record ed Getting School Help Needed Not on file 06/13 Comments No Sex and Gender Information Value Date Recorded Sex Assigned at Not on file 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 Gender Identity Not on file Sexual Orientation Not on file Occupation Industry Job Start Date Job End Date homemaker Not on file Not on file Not on file documented as of this encounter Medications at Time of Discharge acetaminophen (TYLENOL) 325 MG tabletIndications: Status post hysteroscopy Take 2 tablets (650 mg) by mouth every 4 hours as needed for other (mild pain) 100 tablet 11/02/2022 albuterol (PROAIR HFA/PROVENTIL HFA/VENTOLIN HFA) 108 (90 Base) MCG/ACT inhaler Inhale 1-2 puffs into the lungs every 4 hours as needed 05/30/2021 fluticasone-salmet gianna (ADVAIR) 250-50 MCG/DOSE inhaler Inhale 1 puff into the lungs 2 times daily losartan (COZAAR) 25 MG tablet Take 25 mg by mouth daily 10/04/2022 omeprazole (PRILOSEC) [address] capsule Take 20 mg by mouth daily oxyCODONE (ROXICODONE) 5 MG tabletIndications: S/P laparoscopic hysterectomy Take 1-2 tablets (5-10 mg) by mouth every 4 hours as needed for moderate to severe pain 15 tablet 12/21/2022 documented as of this encounter Plan of Treatment Not on file documented as of this encounter Procedures Procedure Name Priority Date/Time Associated Diagnosis Comments MA SCREENING BILATERAL W/ STEF Routine 05/11/2024 2:33 PM CDT Visit for screening mammogram documented in this encounter Results * MA Screen Bilateral w/Stef (05/11/2024 [...] ??There is no radiographic evidence of malignancy. [facility] Mona Mason MD IMG MAMMOGRAPHY ORDERABL ES Final Result documented in this encounter Visit Diagnoses Diagnosis Visit for screening mammogram Other screening mammogram documented in this encounter Care Teams Pattern Storage Clerk Relationship Specialty [place] [address] [place] [address] PCP - General Family Medicine 02/27/22 Chino Biswas MD Family Practice 06/16/11 Tameka Abernathy PA-C [address] [place] [address] [place] [address] Physician Percussion Welding Machine Operator Urology 04/23/22 documented as of this encounter
--- OUTSIDE RECORDS SUMMARY | 2024-06-27 16:21 | XMS_ITS | Encounter Summary ---
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 No / Unsure 11/02/2022 9:30 AM JOURNEYMAN PATTERNMAKER documented as of this encounter Plan of Treatment Not on file documented as of this encounter Results * Hemoglobin (12/20/2022 10:48 AM CDT) Hemoglobin 12.9 11.7 - 15.7 g/dL 12/20/2022 11:00 AM CDT [facility] Blood STRUCTURE OF RIGHT UPPER LIMB / Unknown Venipuncture / Unknown 12/20/2022 10:48 AM CDT 12/20/2022 10:48 AM CDT us Kate Mason MD LAB - BLOOD ORDERABLES F inal Result [facility] [address] Lab (1st floor, no room number) [place] [address], [facility] [phone] documented in this encounter Visit Diagnoses Diagnosis Pre-op testing- Primary Preoperative examination, unspecified documented in this encounter Care Teams Senior Sas Developer Relationship Specialty [place] [address] [place] [address] PCP - General Family Medicine 02/27/22 Chino Biswas MD Family Practice 06/16/11 Tameka Abernathy PA-C [address] [place] [address] Physician Clinical Training Specialist Urology 04/23/22 documented as of this encounter
--- OUTSIDE RECORDS SUMMARY | 2024-06-27 16:21 | XMS_ITS | Clinical Summary ---
Author Organization [facility] Address [address] [place] [address] Care Team Providers Care Finisher Cold Rolling Name Role Phone Chino Biswas MD Unavailable [phone] Crystal Sherman MD Primary Care Provider Tameka Abernathy PA-C Unavailable [phone] Allergies Active Allergy Reactions Criticality Noted Date [...] ACL (anterior cruciate ligament) tear 10/24/2015 12/02/2015 Encounters Date Type Department Care Team Description 05/11/2024 2:14 PM CDT - 05/11/2024 11:59 PM CDT Hospital Encounter [facility] [address] [facility], [address] [place] [phone] Kate Mason MD Visit for screening mammogram Discharge Disposition: Home or Self Care 05/11/2024 Travel from Last 3 Months Family History Medical History Relation Comments Hypertension Brother 1 Thyroid Disease Brother 2 Hypertension Father C.A.D. Maternal Grandfather Heart Disease Maternal Grandfather Breast Cancer Maternal Grandmother age 85 C.A.D. Maternal Grandmother Mi in 60's Cancer - colorectal Maternal Grandmother Alzheimer Disease Mother Breast Cancer Mother Thyroid Disease Mother C.A.D. 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 Gender Identity Not on file Sexual Orientation [...] 12/21/2022 10:54 AM CDT Plan of Treatment Health Maintenance Due Date Last Done Comments ADVANCE CARE PLANNING 1963 ANNUAL REVIEW OF HM ORDERS 1963 ASTHMA ACTION PLAN 1963 ASTHMA CONTROL TEST 1963 CT COLONOGRAPHY 1963 FIT 1963 FLEX SIG 1963 LIPID 1963 YEARLY PREVENTIVE VISIT 1963 sDNA (Cologuard) 1963 Pneumococcal Vaccine: Pediatrics (0 to 5 Years) and At-Risk Patients (6 to 64 Years) (1 of 2 - PCV) 1969 HIV SCREENING 1978 HEPATITIS C SCREENING 1981 PAP 02/06/1984 DTAP/TDAP/TD IMMUNIZATION (1 - Tdap) 06/02/2005 06/01/2005 LUNG CANCER SCREENING 2013 ZOSTER IMMUNIZATION (1 of 2) 2013 RSV VACCINE (1 - Risk 60-74 years 1-dose series) 2023 PHQ-2 (once per calendar year) 2023 COVID-19 Vaccine (5 - season) 2024 06/07/2023, 06/23/2021, 11/14/2020, Additional history exists INFLUENZA VACCINE (#1) 2024 06/07/2023 GLUCOSE 02/27/2025 02/27/2022, 02/0 03/2021, 02/23/2020 MAMMO SCREENING 05/11/2026 05/11/2024, 12/0 03/2021, 04/30/2020, Additional history exists COLONOSCOPY 02/18/2031 02/18/2021, 12/05/2018 COLORECTAL CANCER SCREENING 02/18/2031 HPV IMMUNIZATION Aged Out No longer e ligible based on patient's age to complete this topic MENINGITIS IMMUNIZATION Aged Out No l onger eligible based on patient's age to complete this topic RSV MONOCLONAL ANTIBODY Aged Out No l onger eligible based on patient's age to complete [...] ??There is no radiographic evidence of malignancy. us Kate Mason MD IMG MAMMOGRAPHY ORDERABL ES Final Result * (ABNORMAL) Comprehensive metabolic panel (02/27/2022 3:35 PM CDT) Sodium 136 133 - 144 mmol/L 02/27/2022 4:05 PM CDT [facility] Potassium 4.0 3.4 - 5.3 mmol/L 02/27/2022 4:05 PM [facility] Chloride 104 94 - 109 mmol/L 02/27/2022 4:05 PM [facility] Carbon Dioxide (CO2) 24 20 - 32 mmol/L 02/27/2022 4:05 PM [facility] Anion Gap 8 3 - 14 mmol/L 02/27/2022 4:05 PM [facility] Urea Nitrogen 9 7 - 30 mg/dL 02/27/2022 4:05 PM [facility] Creatinine 0.78 0.52 - 1.04 mg/dL 02/27/2022 4:05 PM [facility] Calcium 9.2 8.5 - 10.1 mg/dL 02/27/2022 4:05 PM [facility] Glucose 117(H) 70 - 99 mg/dL 02/27/2022 4:05 PM [facility] Alkaline Phosphatase 84 40 - 150 U/L 02/27/2022 4:05 PM [facility] AST 13 0 - 45 U/L 02/27/2022 4:05 PM [facility] ALT 40 0 - 50 U/L 02/27/2022 4:05 PM [facility] Protein Total 7.4 6.8 - 8.8 g/dL 02/27/2022 4:05 PM [facility] Albumin 3.6 3.4 - 5.0 g/dL 02/27/2022 4:05 PM [facility] Bilirubin Total 0.9 0.2 - 1.3 mg/dL 02/27/2022 4:05 PM [facility] GFR Estimate 87 >60 mL/min/1.7 3m2 02/27/2022 4:05 PM [facility] Comment:Effective July 312020 eGFRcr in adults is calculated using the 2020 CKD-EPI creatinine equation which includes age and gender (Lisa et al., NEJM, DOI: 10.1056/DZZLpv4926806) Blood STRUCTURE OF LEFT UPPER LIMB / Unknown Venipuncture / Unknown 02/27/2022 3:35 PM CDT 02/27/2022 3:41 PM CDT us More Brower MD LAB - BLOOD ORDERABLES Final Result [facility] [address] Lab (1st floor, no room number) [place] [address], [facility] [phone] from Last 3 Months or Most Recently Relevant to Health Maintenance Insurance [employer] Advance Directives For more information, please contact: [phone] * Full Code (Latest Code Status on File) Date Activated Date Inactivated Comments 11/02/2022 12:09 PM 11/02/2022 3:24 PM All basic and advanced life-sustaining interventions are performed as appropriate Question Answer Comments Code status determined by: Discussion with patie nt/ legal decision maker Care Teams Finisher Cold Rolling Relationship Specialty [place] [address] [place] [address] PCP - General Family Medicine 02/27/22 Chino Biswas MD Family Practice 06/16/11 Tameka Abernathy PA-C [address] [place] [address] Physician Lease Broker Urology 04/23/22
[2024-06-27 16:27] LABS: Slide Review Reflex No
[2024-06-27 16:32] LABS: Albumin* 4.1 g/dL (3.3-5.0); Chloride* 101 mmol/L (96-114)
[2024-06-27 16:33] LABS: Sodium* 134 mmol/L (135-149)
[2024-06-27 16:35] LABS: Alanine Aminotransferase* 24 U/L (4-35); Alkaline Phosphatase* 91 U/L (40-150); Anion Gap 7 mEq/L (7-15); Aspartate Amino Transferase* 21 U/L (12-35); Bilirubin Total* 0.3 mg/dL (0.1-1.5); Blood Urea Nitrogen* 17 mg/dL (7-30); Calcium* 9.4 mg/dL (8.4-10.6); Carbon Dioxide* 26 mmol/L (20-32); Creatinine* 0.9 mg/dL (0.5-1.5); Est. Creatinine Clearance* 42.44; Estimated Glomerular Filt Rate 73 ml/min; Glucose* 119 mg/dL (60-115); Lipase* 133 U/L (23-300); Total Protein* 6.6 g/dL (6.0-8.3)
[2024-06-27 16:42] VITALS: BP 165/79; PULSE 89; RESP 18; TEMP 36.3; O2SAT 97
[2024-06-27] MEDS: KETOROLAC 15 MG/ML inj IVP (17:07)
== END 2024-06-27 17:44 | disposition home or self-care (01) ==
PROVIDERS: Emergency Provider Emergency Medicine; PCP Family Medicine
DX: K52.9 Noninfective gastroenteritis and colitis, unspecified (principal)
CPT/HCPCS: 36415; 74177; 80053; 81001; 82565; 83690; 85025; 96374; 99283; 99284; J1885; Q9967